=== PATIENT | female | born 1965 | race Caucasian/White ===

== ENCOUNTER 2024-04-13 20:59 | Emergency (ER) | payer BC, OTHER ==
[2024-04-13] MEDS: hydrOXYzine HCl 50 MG/ML SDV IM ONE (21:21)
[2024-04-13] MEDS: HYDROmorphone 2 MG/ML SDV IM ONE (21:22)
== END 2024-04-13 22:25 | disposition home or self-care (01) ==
LOC: FB.ED 20:59
DX: G89.18 Other acute postprocedural pain (principal); M25.562 Pain in left knee; F17.210 Nicotine dependence, cigarettes, uncomplicated; Z96.652 Presence of left artificial knee joint; Z88.2 Allergy status to sulfonamides; Z88.8 Allergy status to other drugs, medicaments and biological substances; Z79.899 Other long term (current) drug therapy
CPT/HCPCS: 96372; 99282; J1171; J3410